=== PATIENT | male | born 1975 | race Caucasian/White ===

== ENCOUNTER 2017-06-06 21:04 | Emergency (ER) | payer OTHER ==
--- NOTE | 2017-06-06 22:02 | RAD ---
INDICATION: Crush hand injury in car door. TECHNIQUE: 4 views of the right hand were obtained. FINDINGS: There is soft tissue swelling in the fingers. No fracture is seen. Joint spaces appear maintained. IMPRESSION: SOFT TISSUE SWELLING, NO FRACTURE IS SEEN.
[2017-06-06 22:24] VITALS: BP 134/78
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
== END 2017-06-06 22:44 | disposition home or self-care (01) ==
LOC: ED 21:04
DX: S67.21XA Crushing injury of right hand, initial encounter (principal); M79.641 Pain in right hand; S60.221A Contusion of right hand, initial encounter; Y93.9 Activity, unspecified; Y92.9 Unspecified place or not applicable; W23.0XXA Caught, crushed, jammed, or pinched between moving objects, initial encounter; Y93.89 Activity, other specified
CPT/HCPCS: 99282

== ENCOUNTER 2021-03-24 23:01 | Observation (INO) ==
[2021-03-24 23:58] LABS: ABS Basophils 0.2 10^3/ul (0-0.2); ABS Eosinophils 0.8 10^3/ul (0-0.6); ABS Lymphocytes 3.9 10^3/ul (1.0-4.8); ABS Monocytes 1.2 10^3/ul (0-0.8); ABS Neutrophils 9.4 10^3/ul (1.5-7.7); Eosinophil % 5.1 %; Hematocrit 48 % (42-52); Lymphocyte % 25.2 %; Mean Corpuscular HGB Conc 34 g/dL (31-36); Mean Corpuscular Hemoglobin 31 pg (27-31); Mean Corpuscular Volume 91 fL (80-94); Mean Platelet Volume 9.5 fL (7.4-10.4); Platelet Count 235 10^3/uL (150-450); Red Blood Count 5.23 10^6 /uL (4.18-5.48); Red Cell Distribution Width 14 % (10-15); White Blood Count 15.4 10^3/uL (3.5-10.8)
[2021-03-25 00:15] LABS: Albumin 4.1 g/dL (3.2-5.2); Albumin/Globulin Ratio 1.2 (1-3); C Reactive Protein 8.27 mg/L (<8.01); Calcium 9.4 mg/dL (8.6-10.3); EGFR African American 106.3 (>60); EGFR Non-African American 87.9 (>60); Globulin 3.3 g/dL (2-4); Potassium 3.6 mmol/L (3.5-5.0); Total Bilirubin 0.3 mg/dL (0.2-1.0); Total Protein 7.4 g/dL (6.4-8.9)
[2021-03-25] MEDS ORDERED: Piperacillin/Tazobac ADVAN 3.375 GM in NS 0.9% 100 ml BAG 100 ML IV ONE (00:28)
[2021-03-25] MEDS ORDERED: Al Hydrox/Mg Hydrox/Simet LIQ 30 ML UDC PO PRN (00:48)
[2021-03-25] MEDS ORDERED: Magnesium Hydroxide LIQ 30 ML UDC PO PRN (00:48)
[2021-03-25] MEDS ORDERED: Zosyn per Pharmacy NOTE FOLLOW UP SCH (01:00)
[2021-03-25] MEDS ORDERED: NS 0.9% 1000 ml BAG 1,000 ML IV SCH (01:00)
[2021-03-25 01:47] LABS: INR 1.09 (0.82-1.09)
[2021-03-25] MEDS: ZOSYN 3.375 GM Q8H per EXTENDED INFUSION IV SCH ×2 (06:12→14:43)
[2021-03-25] MEDS ORDERED: Nicotine PATCH 14 MG/24 HR PATCH TRANSDERM SCH (10:00)
[2021-03-25 10:12] LABS: Hematocrit 48 % (42-52); Hemoglobin 16.2 g/dL (14.0-18.0); Mean Corpuscular HGB Conc 34 g/dL (31-36); Mean Corpuscular Hemoglobin 31 pg (27-31); Mean Corpuscular Volume 91 fL (80-94); Mean Platelet Volume 9.3 fL (7.4-10.4); Platelet Count 227 10^3/uL (150-450); Red Blood Count 5.32 10^6 /uL (4.18-5.48); Red Cell Distribution Width 13 % (10-15); White Blood Count 18.3 10^3/uL (3.5-10.8)
[2021-03-25 10:22] LABS: ABS Basophils 0.1 10^3/ul (0-0.2); ABS Eosinophils 0.6 10^3/ul (0-0.6); ABS Lymphocytes 2.8 10^3/ul (1.0-4.8); ABS Monocytes 1.6 10^3/ul (0-0.8); ABS Neutrophils 13.2 10^3/ul (1.5-7.7); Eosinophil % 3.3 %; Lymphocyte % 15.2 %
[2021-03-25 10:28] LABS: INR 1.11 (0.82-1.09)
[2021-03-25 10:31] LABS: Calcium 9.1 mg/dL (8.6-10.3); EGFR African American 111.8 (>60); EGFR Non-African American 92.4 (>60)
[2021-03-25] MEDS ORDERED: Vancomycin 1,000 MG VIAL ONE (13:18)
[2021-03-25] MEDS ORDERED: Propofol 10 MG/ML 20 ML BTL ONE (13:20)
[2021-03-25] MEDS ORDERED: fentaNYL 100 mcg/2 ml 50 MCG/ML VIAL ONE (13:20)
[2021-03-25] MEDS ORDERED: Midazolam 2 mg/2 ml VIAL 1 mg/ml 2 ml VIAL (2 mg) ONE (13:20)
[2021-03-25] MEDS ORDERED: Dexamethasone IV 4 MG/ML VIAL 1 ml VIAL ONE (13:53)
[2021-03-25] MEDS ORDERED: Ondansetron 4 mg VIAL 2 MG/ML 2 ml VIAL ONE (13:53)
[2021-03-25] MEDS ORDERED: Prochlorperazine 5 mg/ml 2 ml VIAL (10 mg) IV PRN (13:56)
[2021-03-25] MEDS ORDERED: diPHENhydraMINE IV 50 MG/ML 1 ml VIAL (BENADRYL) IV PRN (13:56)
[2021-03-25] MEDS ORDERED: Naloxone 0.4 mg VIAL 0.4 mg/ml 1 ml VIAL IV PRN (13:56)
[2021-03-25] MEDS ORDERED: HYDROmorphone 1 MG/1 ML SYRINGE ONE (13:59)
[2021-03-25 15:05] VITALS: BP 121/64
== END 2021-03-25 17:30 | disposition left against medical advice (07) ==
LOC: SSU 23:01 → ED 23:01 → SSU 03-25 03:01
PROVIDERS: ADMIT Hospitalist; ATTEND Internal Medicine